=== PATIENT | female | born 1990 | race Caucasian/White ===

== ENCOUNTER 2020-05-21 00:07 | Emergency (ER) | payer BC ==
--- NOTE | 2020-05-21 00:44 | EDM.PDOC ---
ED HPI GENERAL MEDICAL PROBLEM - General Chief Complaint: Abdominal Pain Stated Complaint: ABDOMINAL PAIN Time Seen by Provider: 05/21/20 00:19 Source of Information: Reports: Patient, Family () History Limitations: Reports: No Limitations - History of Present Illness INITIAL COMMENTS - FREE TEXT/NARRATIVE: Mrs. Sena is a very pleasant 29-year-old woman who now presents the ED after experiencing a "gallbladder attack" tonight, with a sudden onset felt like pain around her upper abdomen, along with nausea and 2 episodes of emesis, that began at 23:20 and resolved 1 hour later, at 00:20, just as she was checking into the ER. She states that she initially experienced this once in February, then twice on , with minimal symptoms since. She underwent an ultrasound of the right upper quadrant at [facility] on 05/14/2020, which apparently demonstrated cholelithiasis. The patient has an appointment to see a Surgeon to schedule an outpatient cholecystectomy this coming 05/22/2020. The patient acknowledges that she had some greasy food for lunch, although she states that greasy food does not always cause pain, and when it does, not always right away. Here in the ED, the patient is found to be hemodynamically stable, afebrile, saturating 100% on room air. Other than biliary colic and nausea with vomiting, the patient denies having a recent fever, chills, sore throat, ear pain, nasal or sinus congestion, cough, dyspnea, chest pain, palpitations, constipation, diarrhea, urinary symptoms, recent weight gain or weight loss, recent bloody bowel movements or black bowel movements, recent joint aches, headaches, or rashes. The patient's PCP is Radha Calix NP. The surgeon that she will be meeting on Thursday is Dr. Katie Grubbs. Her PHOTORESIST PRINTER is Dr. Grecia Reynolds, at [facility]. She already received an influenza vaccine this season. - Related Data Allergies Allergy/AdvReac Type Severity Reaction Status Date / Time amoxicillin Allergy Rash Verified 05/21/20 00:20 Penicillins Allergy Rash Verified 05/21/20 00:20 Home Meds: Home Meds Control. 1 tab PO DAILY 05/21/20 [History] Past Medical History Gastrointestinal History: Reports: Cholelithiasis PHOTORESIST PRINTER History: Reports: Endometriosis (laparoscopy-proven) Endocrine/Metabolic History: Reports: Obesity/BMI 30+ - Past Surgical History HEENT Surgical History: Reports: Oral Surgery (dental extractions) Female Surgical History: Reports: Section (x 1), Oophorectomy (partial, left + removal of endometrial lesions) Social & Family History - Tobacco Use Tobacco Use Status *Q: Never Tobacco User Second Hand Smoke Exposure: No - Caffeine Use Caffeine Use: Reports: Coffee - Alcohol Use Alcohol Use History: Yes Alcohol Use Frequency: Socially - Recreational Drug Use Recreational Drug Use: No - Living Situation & Occupation Living situation: Reports: , with Spouse, with Family (1 baby) Occupation: Employed (RN at [employer]) ED ROS GENERAL - Review of Systems Review Of Systems: Comprehensive ROS is negative, except as noted in HPI. ED EXAM, GI/ABD - Physical Exam Exam: See Below Exam Limited By: No Limitations General Appearance: Alert, WD/WN, No Apparent Distress Eyes: Bilateral: Normal Appearance, EOMI Ears: Normal External Exam, Hearing Grossly Normal Nose: Normal Inspection Throat/Mouth: Normal Inspection, Normal Lips, Normal Voice, No Airway Compromise Head: Atraumatic, Normocephalic Neck: Normal Inspection, Full Range of Motion Respiratory/Chest: No Respiratory Distress, Lungs Clear, Normal Breath Sounds, No Accessory Muscle Use Cardiovascular: Normal Peripheral Pulses, Regular Rate, Rhythm, No Gallop, No JVD, No Murmur, No Rub GI/Abdominal Exam: Normal Bowel Sounds, Soft, Non-Tender (including the RUQ), No Organomegaly, No Distention, No Abnormal Bruit, No Mass Back Exam: Normal Inspection, Full Range of Motion, NT Extremities: Normal Inspection, Normal Range of Motion, Normal Capillary Refill Neurological: Alert, Oriented, Normal Cognition, No Motor/Sensory Deficits Psychiatric: Normal Affect Skin Exam: Warm, Dry, Intact, Normal Color, No Rash Course - Vital Signs Last Recorded V/S: Last Vital Signs Temp 36.1 C 05/21/20 00:23 Pulse 66 05/21/20 00:23 Resp 16 05/21/20 00:23 BP 115/65 05/21/20 00:23 Pulse Ox 100 05/21/20 00:23 - Re-Assessments/Exams Free Text/Narrative Re-Assessment/Exam: 05/21/20 00:37 As above, the patient appears to have suffered an episode of biliary colic earlier tonight, associated with 2 episodes of emesis. Her symptoms resolved as she was checking in to the ED, and she currently feels completely back to normal. Her physical exam is unremarkable. I recommended that she eat as low-fat a diet as possible, and she will be following up with Dr. Cardenas this coming 05/22/2020. Departure - Departure Time of Disposition: 00:38 Disposition: Home, Self-Care 01 Condition: Good Clinical Impression: Biliary colic - Discharge Information *PRESCRIPTION DRUG MONITORING PROGRAM REVIEWED*: Not Applicable *COPY OF PRESCRIPTION DRUG MONITORING REPORT IN PATIENT ADILIA: Not Applicable Referrals: Radha Calix NP [Primary Care Provider] - Katie Grubbs MD [Physician] - Additional Instructions: You were seen in the emergency room after experiencing belt-like pain around her upper abdomen, along with vomiting, symptoms consistent with previously diagnosed biliary colic. Your symptoms resolved about the time you were checking into the ER. Going forward, we recommend that you eat as low-fat a diet as possible. Any grease, oil, or fat in your diet can result in pain. Follow-up with the Surgeon Dr. Katie Grubbs at your previously scheduled appointment this coming 05/22/2020, to arrange for an outpatient cholecystectomy. If any other problems, please do not hesitate to return to the ER. Sepsis Event Note (ED) - Evaluation Sepsis Screening Result: No Definite Risk - Focused Exam Vital Signs: Vital Signs Temp Pulse Resp BP Pulse Ox 05/21/20 00:23 36.1 C 66 16 115/65 100
== END 2020-05-21 00:45 | disposition home or self-care (01) ==
LOC: JD.ED 00:07
DX: K80.50 Calculus of bile duct without cholangitis or cholecystitis without obstruction (principal); E66.9 Obesity, unspecified; Z88.1 Allergy status to other antibiotic agents; Z88.0 Allergy status to penicillin
CPT/HCPCS: 99282; 99283